=== PATIENT | female | born 1970 | race Two or more races ===

== ENCOUNTER 2021-09-02 16:27 | Emergency (ER) | payer SELFPAY ==
[~2021-09-02] VITALS: Ht 157.5 cm; Wt 59.0 kg
[2021-09-02 20:47] VITALS: BP 110/90
[2021-09-02] MEDS ORDERED: traMADol HCL 50 MG TAB PO ONE (21:00)
== END 2021-09-02 23:12 | disposition home or self-care (01) ==
LOC: ER 16:27
DX: N61.1 Abscess of the breast and nipple (principal)
CPT/HCPCS: 71046; 76642; 93971